=== PATIENT | female | born 1995 | race Caucasian/White ===

== ENCOUNTER 2018-07-16 15:47 | Emergency (ER) | payer BC ==
--- NOTE | 2018-07-16 16:45 | UC ---
Respiratory Complaint HPI - HPI Summary HPI Summary: 22 yo female presents with fever, sore throat, dry cough, fatigue, and body aches since yesterday. She has taken ibuprofen for her discomfort and fever with mild relief. 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 Her fever has been from 99.4 to 101F. Denies SOB, chest pain, abdominal, vomiting, dysuria. - History of Current Complaint Stated Complaint: FEVER,COUGH,NAUSEA,CHILLS Time Seen by Provider: 07/16/18 16:45 Hx Obtained From: Patient Hx Last Menstrual Period: 05/09/15 Onset/Duration: Sudden Onset Severity Initially: Mild Severity Currently: Moderate Pain Intensity: 5 Pain Scale Used: 0-10 Numeric Character: Cough: Nonproductive - Allergies/Home Medications Allergies/Adverse Reactions: Allergies Allergy/AdvReac Type Severity Reaction Status Date / Time No Known Allergies Allergy Verified 12/01/15 18:08 Home Medications: Home Medications Acetaminophen [Tylophen] 500 mg PO ONCE 07/16/18 [History Confirmed 07/16/18] Escitalopram Oxalate [Lexapro 10 mg] 10 mg PO DAILY 07/16/18 [History Confirmed 07/16/18] Levonorgestrel (Iud) [Mirena IUD] 1 each VAGINAL DAILY 07/16/18 [History Confirmed 07/16/18] PMH/Surg Hx/FS Hx/Imm Hx Endocrine History: Hypothyroidism Psychological History: Anxiety, Depression - Surgical History Surgical History: None - Family History Known Family History: Positive: None - Social History Occupation: Student Lives: With Family Alcohol Use: None Substance Use Type: None Smoking Status (MU): Never Smoked Tobacco - Immunization History Vaccination Up to Date: Yes Review of Systems All Other Systems Reviewed And Are Negative: Yes Constitutional: Positive: Fever, Fatigue, Other - Body aches Skin: Positive: Negative Eyes: Positive: Negative ENT: Positive: Sore Throat Respiratory: Positive: Cough Cardiovascular: Positive: Negative Gastrointestinal: Positive: Negative Neurological: Positive: Negative Psychological: Positive: Negative Physical Exam - Summary Physical Exam Summary: GENERAL: NAD. WDWN. No pain distress. SKIN: No rashes, sores, lesions, or open wounds. HEENT: Head: AT/NC Eyes: EOM intact. Conjunctiva clear without inflammation or discharge. Ears: Hearing grossly normal. TMs intact, no bulging, erythema, or edema. Nose: Nasal mucosa pink and moist. NTTP maxillary and frontal sinus. Throat: Posterior oropharynx without exudates, erythema, or tonsillar enlargement. Uvula midline. NECK: Supple. Nontender. No lymphadenopathy. CHEST: CTAB. No r/r/w. No accessory muscle use. Breathing comfortably and in no distress. CV: RRR. Without m/r/g. Pulses intact. Cap refill <2seconds NEURO: Alert. PSYCH: Age appropriate behavior. Triage Information Reviewed: Yes Vital Signs: Vital Signs: Temp Pulse Resp BP Pulse Ox 98.8 F 93 17 115/71 100 07/16/18 16:45 07/16/18 16:45 07/16/18 16:45 07/16/18 16:45 07/16/18 16:45 Laboratory Tests 07/16/18 16:57 Influenza A (Rapid) Negative Influenza B (Rapid) Negative Vital Signs Reviewed: Yes Respiratory Course/Dx - Course Course Of Treatment: POC flu negative. Symptoms began yesterday. Suspect viral illness. Advised to continue tylenol/ibuprofen for discomfort and fever. Rx tessalon for cough. F/u if symptoms persist or worsen. - Differential Dx/Diagnosis Provider Diagnosis: Viral syndrome Discharge - Sign-Out/Discharge Documenting (check all that apply): Patient Departure All imaging exams completed and their final reports reviewed: No Studies - Discharge Plan Condition: Stable Disposition: HOME Prescriptions: Benzonatate CAP* [Tessalon 100 MG CAP*] 100 mg PO TID PRN #15 cap PRN Reason: Cough Patient Education Materials: Viral Syndrome (ED) Referrals: Perri Mckeon PA [Primary Care Provider] - Additional Instructions: If you develop a fever, shortness of breath, chest pain, new or worsening symptoms - please call your PCP or go to the ED. - Billing Disposition and Condition Condition: STABLE Disposition: Home
[2018-07-16 16:51] VITALS: BP 115/71
== END 2018-07-16 17:17 | disposition home or self-care (01) ==
LOC: UCCORT 15:47
DX: B34.9 Viral infection, unspecified (principal); F41.8 Other specified anxiety disorders
CPT/HCPCS: 99212; G0463

== ENCOUNTER 2019-02-12 13:26 | Emergency (ER) | payer BC ==
--- NOTE | 2019-02-12 14:12 | UC ---
Hand/Wrist HPI - HPI Summary HPI Summary: 23 yo female presents with LEFT middle finger injury. She tells me that about 1 month ago she was moving some items and twisted her left middle finger. Had pain at the PIP joint. She rested it and thought it would improve. She is still having pain with certain movements and with gripping items. She is right handed. Denies numbness or tingling. - History Of Current Complaint Stated Complaint: LEFT MIDDLE FINGER INJURY Time Seen by Provider: 02/12/19 14:11 Hx Obtained From: Patient Hx Last Menstrual Period: 05/09/15 Onset/Duration: Sudden Onset Severity Initially: Moderate Severity Currently: Mild Pain Intensity: 2 Pain Scale Used: 0-10 Numeric - Allergies/Home Medications Allergies/Adverse Reactions: Allergies Allergy/AdvReac Type Severity Reaction Status Date / Time No Known Allergies Allergy Verified 02/12/19 14:14 Home Medications: Home Medications Control Pill 1 dose PO DAILY 02/12/19 [History Confirmed 02/12/19] PMH/Surg Hx/FS Hx/Imm Hx Endocrine History: Hypothyroidism Psychological History: Anxiety, Depression - Surgical History Surgical History: None - Family History Known Family History: Positive: None - Social History Lives: With Family Alcohol Use: None Substance Use Type: None Smoking Status (MU): Never Smoked Tobacco - Immunization History Vaccination Up to Date: Yes Review of Systems All Other Systems Reviewed And Are Negative: Yes Constitutional: Positive: Negative Skin: Positive: Negative Respiratory: Positive: Negative Cardiovascular: Positive: Negative Neurovascular: Positive: Negative Musculoskeletal: Positive: Other: - Left middle finger pain Neurological: Positive: Negative Psychological: Positive: Negative Physical Exam - Summary Physical Exam Summary: GENERAL: NAD. WDWN. No pain distress. SKIN: No rashes, sores, lesions, or open wounds. CHEST: No accessory muscle use. Breathing comfortably and in no distress. CV: Pulses intact radial and ulnar. Cap refill <2seconds MSK: LEFT MIDDLE FINGER: NTTP. FROM. Strength 5/5 including bi report developer strength. No edema or obvious bony deformities. No increased laxity NEURO: Alert. Sensations intact hand and all fingers. PSYCH: Age appropriate behavior. Triage Information Reviewed: Yes Vital Signs: Vital Signs (72 hours) 02/12/19 14:13 Temperature 97.6 F Pulse Rate 77 Respiratory 14 Rate Blood Pressure 114/69 (mmHg) O2 Sat by Pulse 100 Oximetry Vital Signs Reviewed: Yes Hand/Wrist Course/Dx - Course Course Of Treatment: XR: IMPRESSION: NO EVIDENCE FOR FRACTURE. I am unsure the cause of her continued discomfort, however there could be an underlying tendon or ligament injury as she is having continued discomfort. Will refer her to Orthopedics for further eval. - Differential Dx/Diagnosis Provider Diagnosis: Pain of left middle finger Discharge - Sign-Out/Discharge Documenting (check all that apply): Patient Departure All imaging exams completed and their final reports reviewed: Yes - Discharge Plan Condition: Stable Disposition: HOME Patient Education Materials: Finger Sprain (ED) Referrals: Perri Mckeon PA [Primary Care Provider] - Snato Leigh MD [Medical Doctor] - As Soon As Possible Additional Instructions: If you develop a fever, shortness of breath, chest pain, new or worsening symptoms - please call your PCP or go to the ED immediately. I recommend that you call Orthopedics at the number below to schedule an appointment within 2 weeks for a recheck of your finger - Billing Disposition and Condition Condition: STABLE Disposition: Home
[2019-02-12 14:18] VITALS: BP 114/69
== END 2019-02-12 14:50 | disposition home or self-care (01) ==
LOC: UCCORT 13:26
DX: M79.645 Pain in left finger(s) (principal)
CPT/HCPCS: 73140; 99211; G0463

== ENCOUNTER 2019-09-25 12:54 | Emergency (ER) | payer BC | END 2019-09-25 13:08 | disposition left against medical advice (07) | LOC: UCCORT 12:54 | DX: R05 Cough (principal); Z53.21 Procedure and treatment not carried out due to patient leaving prior to being seen by health care provider ==